=== PATIENT | male | born 1960 | race Caucasian/White ===

== ENCOUNTER 2018-12-03 11:48 | Day surgery (SDC) | payer OTHER, MEDICAID ==
[~2018-12-03 11:48] MED LIST: PROPOFOL 200 MG INJ; SEVOFLURANE 15 MIN
[2018-12-03] MEDS ORDERED: PROPOFOL 20 ML (14:02)
[2018-12-03] MEDS ORDERED: LIDOCAINE 2% (SDV) 5 ML INJ (14:02)
[2018-12-03] MEDS ORDERED: FENTAnyl 50 MCG/ML VIAL (14:04)
[2018-12-03] MEDS: BUPIVACAINE 0.5% (SDV) 30 ML INJ (14:04)
[2018-12-03] MEDS ORDERED: CEFAZOLIN 1 GM INJ (14:44)
[2018-12-03] MEDS ORDERED: ONDANSETRON 4 MG INJ (14:48)
[2018-12-03] MEDS ORDERED: DEXAMETHASONE 4 MG/ML 5 ML INJ (14:48)
[2018-12-03] MEDS ORDERED: MEPERIDINE 25 MG INJ IV (16:00)
[2018-12-03] MEDS ORDERED: LABETALOL HCL 20MG INJ IV (16:00)
[2018-12-03] MEDS ORDERED: OXYCODONE/ACETAMINOPHEN (5/325) TAB PO ×2 (16:00)
[2018-12-03] MEDS ORDERED: FENTAnyl 50 MCG/ML VIAL IV ×3 (16:00)
[2018-12-03] MEDS ORDERED: hydrALAzine 20 MG INJ IV (16:00)
[2018-12-03] MEDS ORDERED: ONDANSETRON 4 MG INJ IV (16:00)
[2018-12-03] MEDS ORDERED: ALBUTEROL 0.083% (NEB) 2.5 MG/3 ML AMP HHN (16:00)
[2018-12-03] MEDS ORDERED: KETOROLAC 30 MG INJ IV (16:00)
[2018-12-03] MEDS ORDERED: DIPHENHYDRAMINE 50 MG INJ IV (16:00)
[2018-12-03] MEDS ORDERED: EPHEDrine 25 MG/5 ML SYG IV (16:00)
[2018-12-03] MEDS ORDERED: METOCLOPRAMIDE 10 MG INJ IV (16:00)
== END 2018-12-03 17:10 | disposition home or self-care (01) ==
LOC: SDS 11:48
DX: D48.1 Neoplasm of uncertain behavior of connective and other soft tissue (principal); R22.32 Localized swelling, mass and lump, left upper limb
CPT/HCPCS: 26117; 88307